=== PATIENT | male | born 1950 | race Caucasian/White ===

== ENCOUNTER 2017-05-15 11:30 | Emergency (ER) | payer OTHER ==
[2017-05-15 13:01] VITALS: BP 109/70
[2017-05-15] MEDS ORDERED: Lidocaine 2% PF * 5 ML VIAL INJ ONE (13:18)
--- NOTE | 2017-05-15 13:26 | UC ---
Head Injury HPI - HPI Summary HPI Summary: pt states at 8:30 this am, he slipped on the ice in his driveway causing him to fall. he notes his glasses cut his head where he bumped the ground. pt states " I just want to see if the cuts need anything. pt denies any loc, neck/back pain , BEE, nausea. he denies use of any blood thinners aside from a baby aspirin daily. he denies any other injury or complaints. pt assures me his last tetanus shot was within 10 years. - History Of Current Complaint Chief Complaint: UCHeadInjury Stated Complaint: HEAD INJURY Time Seen by Provider: 05/15/17 13:08 Hx Obtained From: Patient Mechanism Of Injury: slip and fall Onset/Duration: Sudden Onset Severity Currently: Mild Severity Initially: Mild Pain Intensity: 1 Character: Other - "sore" Aggravating Factor(s): Nothing Alleviating Factor(s): Nothing Associated Signs And Symptoms: Negative: LOC (Time In Secs./Mins/Hrs), Confusion , Memory Loss, Seizure, Neck Pain, Nausea, Vomiting Anticoagulant Therapy: ASA - baby asa daily only - Allergies/Home Medications Allergies/Adverse Reactions: Allergies Allergy/AdvReac Type Severity Reaction Status Date / Time No Known Allergies Allergy Verified 05/15/17 12:49 Home Medications: Home Medications Alendronate Sodium 70 mg PO WEEKLY 05/15/17 [History Confirmed 05/15/17] Aspirin [Ecotrin] 81 mg PO DAILY 05/15/17 [History Confirmed 05/15/17] Atorvastatin* [Lipitor 40 MG*] 1 tab PO BEDTIME 05/15/17 [History Confirmed 03/20] Calcium Carbonate/Vitamin D3 [Calcium 1,000 + D3 Caplet] 2 tab PO DAILY [History Confirmed 05/15/17] Cholecalciferol (Vitamin D3) [Vitamin D3] 1 tab PO DAILY 05/15/17 [History Confirmed 05/15/17] Hydrocortisone [Cortef] 10 mg PO BID 05/15/17 [History Confirmed 05/15/17] Mesalamine CAP(NF) [Pentasa(NF)] 2 tab PO BID 05/15/17 [History Confirmed ] Metoprolol Tartrate [Lopressor] 50 mg PO DAILY 05/15/17 [History Confirmed 05/15] Pantoprazole TAB (NF) [Protonix TAB (NF)] 40 mg PO DAILY 05/15/17 [History Confirmed 05/15/17] Solifenacin Succinate [Vesicare] 10 mg PO BEDTIME 05/15/17 [History Confirmed ] Tamsulosin CAP* [Flomax CAP*] 0.4 mg PO DAILY 05/15/17 [History Confirmed ] PMH/Surg Hx/FS Hx/Imm Hx - Additional Past Medical History Additional PMH: adrenal dz, osteoporosis, crohn's htn Cardiovascular History: Hypertension - Surgical History Surgery Procedure, Year, and Place: Aortic Aneuryism Repair x 2; Cardiac Cath; Bilateral TKR; - Family History Known Family History: Positive: Other - no hx intracranial bleeds - Social History Occupation: Retired Lives: With Family Alcohol Use: Daily Alcohol Amount: 1 glass with dinner Substance Use Type: None Smoking Status (MU): Never Smoked Tobacco Household Exposure Type: Cigarettes - Immunization History Immunizations Comment: tetanus is utd Review of Systems Constitutional: Negative Skin: Other - lacerations Eyes: Negative ENT: Negative Respiratory: Negative Cardiovascular: Negative Gastrointestinal: Negative Genitourinary: Negative Motor: Negative Neurovascular: Negative Musculoskeletal: Negative Neurological: Negative Psychological: Negative Is Patient Immunocompromised?: No All Other Systems Reviewed And Are Negative: Yes Physical Exam Triage Information Reviewed: Yes Appearance: Well-Appearing Vital Signs: Initial Vital Signs Temp 99.1 F 05/15/17 12:56 Pulse 77 05/15/17 12:56 Resp 14 05/15/17 12:56 BP 109/70 05/15/17 12:56 Pulse Ox 97 05/15/17 12:56 Vital Signs Reviewed: Yes Eyes: Positive: Conjunctiva Clear ENT Exam: Normal Neck: Positive: Supple, Nontender Respiratory: Positive: Chest non-tender, Lungs clear, Normal breath sounds Cardiovascular: Positive: RRR, No Murmur Abdomen Description: Positive: Nontender, No Organomegaly, Soft Bowel Sounds: Positive: Present Musculoskeletal Exam: Normal Musculoskeletal: Positive: Other: - no cranial or facial bones instability or tenderness. c-spine and back are without instability or tenderness and rom is intact Neurological: Positive: Alert, Muscle Tone Normal, Other: - CN are grossly intact, normal steady gait. neg rhomberg and pronator drift. 5/5 strength x4. 2 + reflexes x4. Psychological Exam: Normal Psychological: Positive: Age Appropriate Behavior Skin Exam: Other - 3, 1cm lacerations lateral to L eye over the orbital rim that are small flaps. no active bleeding. Procedures - Laceration/Wound Repair 3 Location: face Description: Irregular Anesthesia: Local, 2.0%, Lido Length, Depth and Shape: 1cm Betadine Prep?: Yes Irrigated w/ Saline (ccs): 20 Laceration/Wound Explored: clean Closure: Single Layer Suture Type: Nylon Number of Sutures: 1 Layer Closure?: No Sterile Dressing Applied?: No - antibiotic ointment applied 2 Location: face Description: Irregular Anesthesia: Local, 2.0%, Lido Length, Depth and Shape: 1cm Betadine Prep?: Yes Irrigated w/ Saline (ccs): 20 Laceration/Wound Explored: clean Closure: Single Layer Suture Type: Nylon Number of Sutures: 1 Layer Closure?: No Sterile Dressing Applied?: No - topical antibiotic 1 Location: face Anesthesia: Local, 2.0%, Lido Betadine Prep?: Yes Irrigated w/ Saline (ccs): 20 Laceration/Wound Explored: clean Closure: Single Layer Suture Type: Nylon Number of Sutures: 1 Layer Closure?: No Sterile Dressing Applied?: No - topical antibiotic Head Injury Course/Dx - Course Course Of Treatment: pt only takes a baby asa daily, had no loc and has a reassuring neuro exam. he only drinks a single wine QHS and has no cranial/ facial instability. he has nothing to suggest an intracranial bleed or SDH. need for close f/u and to seek immediate recheck for any changes. pt cautioned about bleed s/s's. he has an incidental f/u with his pcp today at 2:20pm for a routine visit so he is going directly there. - Differential Dx/Diagnosis Provider Diagnoses: 3 facial lacerations. Discharge - Discharge Plan Condition: Stable Disposition: HOME Patient Education Materials: Care For Your Stitches (DC), Head Injury (ED) Referrals: Joseph Cuello MD [Primary Care Provider] - Additional Instructions: FOLLOW UP WITH DR CUELLO SCHEDULED -ROUTINE TODAY AT 2PM. YOU MAY GO TO YOUR DOCTOR OR RETURN HERE FOR SUTURE REMOVAL IN 5 DAYS.
== END 2017-05-15 14:10 | disposition home or self-care (01) ==
LOC: UCCORT 11:30
DX: S01.112A Laceration without foreign body of left eyelid and periocular area, initial encounter (principal); W00.2XXA Other fall from one level to another due to ice and snow, initial encounter; Y93.9 Activity, unspecified; Y92.008 Other place in unspecified non-institutional (private) residence as the place of occurrence of the external cause; Z79.82 Long term (current) use of aspirin; E27.9 Disorder of adrenal gland, unspecified; M81.0 Age-related osteoporosis without current pathological fracture; K50.90 Crohn's disease, unspecified, without complications; I10 Essential (primary) hypertension
CPT/HCPCS: 12011; 12013; 99211; G0463